=== PATIENT | male | born 1975 ===

== ENCOUNTER 2017-03-01 22:50 | Emergency (ER) | payer MEDICAID, OTHER ==
[2017-03-02 00:37] LABS: BASOPHILS % (AUTO) 1 % (0-3); EOSINOPHILS % (AUTO) 2 % (0-9); HEMATOCRIT 38 % (39-53); MEAN CORPUSCULAR HGB CONC 35.4 gm/dl (32.0-36.0); MONOCYTES % (AUTO) 8.2 % (0-12); NEUTROPHILS % (AUTO) 63.4 % (37-80)
[2017-03-02 00:44] LABS: APPEARANCE,URINE Clear; BILIRUBIN,URINE NEGATIVE (NEGATIVE); COLOR,URINE Yellow; GLUCOSE, URINE (UA) NEGATIVE (NEGATIVE); KETONES,URINE NEGATIVE (NEGATIVE); LEUKOCYTE ESTERASE ,URINE 2+ (NEGATIVE); NITRATE,URINE NEGATIVE (NEGATIVE); OCCULT BLOOD,URINE TRACE LYSED (NEG-TRACE); PH,URINE 6.5; UROBILINOGEN,URINE 0.2 (0.2-1.0 EU)
[2017-03-02 00:51] LABS: METHADONE NEGATIVE (NEGATIVE); OPIATES(OP13) NEGATIVE (NEGATIVE); RBC,URINE 0-2 (0-3AV/HPF); TRICYCLIC ANTIDEPRESSANTS NEGATIVE (NEGATIVE); WBC,URINE 60-80 (0-5AV/HPF)
[2017-03-02 00:52] LABS: AMPHETAMINES POSITIVE (NEGATIVE); MEAN CORPUSCULAR VOLUME 78 fL (80-100); OXYCODONE(OXY) NEGATIVE (NEGATIVE); PROPOXYPHENE(PPX) NEGATIVE (NEGATIVE)
[2017-03-02 00:57] LABS: ALBUMIN 3.5 gm/dl (3.4-5.0); ALT 30 IU/L (14-63); CALCIUM 9.1 mg/dl (8.5-10.1); GLOM FILT RATE 97 mL/min (>60); POTASSIUM 3.6 mMol/L (3.5-5.1); SODIUM 139 mMol/L (136-145); THYROID STIMULATING HORMONE 1.891 uIU/ml (0.358-3.740)
[2017-03-02 01:07] VITALS: TEMP 98.2
[2017-03-02] MEDS ORDERED: LEVOFLOXACIN 500 MG TAB PO ONE (01:24)
[2017-03-02] MEDS ORDERED: CEFTRIAXONE 1 GM PDS IM ONE (01:29)
[2017-03-02] MEDS ORDERED: AZITHROMYCIN 250 MG TAB PO ONE (01:29)
[2017-03-02] MEDS ORDERED: HEPATITIS B VACCINE(ADULT) 20 MCG/ML SUS IM ONE ×2 (01:33→01:44)
[2017-03-02] MEDS ORDERED: CEFTRIAXONE 1 GM PDS ONE (01:35)
[2017-03-02] MEDS ORDERED: LIDOCAINE HCL 1% MPF SOL ONE (01:35)
[2017-03-02] MEDS ORDERED: AZITHROMYCIN 250 MG TAB ONE (01:35)
[2017-03-02 05:29] LABS: SALICYLATE < 2.8 mg/dl (2.8-30.0)
[2017-03-02] MEDS ORDERED: RISPERIDONE 1 MG TAB PO ONE (08:54)
[2017-03-02] MEDS ORDERED: GABAPENTIN 100 MG CAP PO ONE (08:54)
[2017-03-02] MEDS ORDERED: GABAPENTIN 300 MG CAP PO ONE (08:54)
[2017-03-02] MEDS ORDERED: RISPERIDONE 1 MG TAB ONE (08:56)
[2017-03-02] MEDS ORDERED: GABAPENTIN 100 MG CAP ONE (08:56)
[2017-03-02] MEDS ORDERED: GABAPENTIN 300 MG CAP ONE (08:56)
[2017-03-02 09:18] VITALS: BP 125/91; PULSE 84; RESP 16; O2SAT 95
== END 2017-03-02 09:50 | disposition short-term general hospital (02) | DRG 885 ==
LOC: ED 22:50
DX: F22 Delusional disorders (principal); F31.9 Bipolar disorder, unspecified; Z91.5 Personal history of self-harm; Z04.41 Encounter for examination and observation following alleged adult rape
CPT/HCPCS: 36415; 80053; 80305; 80307; 81001; 84443; 85025; 87088; 90471; 90746; 96372; 99284; 99285; J0696; J2001